=== PATIENT | male | born 1975 | race Caucasian/White ===

== ENCOUNTER 2020-03-31 11:58 | Emergency (ER) | payer SELFPAY ==
[~2020-03-31] VITALS: Ht 162.6 cm; Wt 75.3 kg
[2020-03-31 12:07] VITALS: BP 123/81; Ht 162.6 cm; Wt 75.3 kg
== END 2020-03-31 13:22 | disposition home or self-care (01) ==
LOC: ED 11:58
DX: S01.81XA Laceration without foreign body of other part of head, initial encounter (principal); W22.8XXA Striking against or struck by other objects, initial encounter; Y93.89 Activity, other specified; Y92.89 Other specified places as the place of occurrence of the external cause; Y99.8 Other external cause status
CPT/HCPCS: J2001